=== PATIENT | male | born 1960 | race Caucasian/White ===

== ENCOUNTER 2025-02-06 08:39 | Outpatient (CLI) | payer MEDICARE, SELFPAY ==
--- NOTE | ~2025-02-06 | US_ITS ---
EXAMINATION: US renal BI, 02/06/2025 8:43 RN OPERATING ROOM HISTORY: stage 3b ckd Comparison: None Technique: Wright-scale and color Doppler images were obtained. Findings: KIDNEYS: The renal cortices are intact with no solid masses or calculi, no hydronephrosis. Right Kidney: Right kidney superior pole simple cyst 2 x 1.8 cm. Right kidney measures 11.8 x 4.8 x 5.8 cm. Left Kidney: Left kidney inferior pole simple cyst 2.6 x 2.3 cm. Left kidney 12.2 x 5 x 6.5 cm. Bladder: The bladder is unremarkable. . Impression: Bilateral simple appearing renal cysts Reviewed, dictated and finalized at location P. OPERATING ROOM Impression: Bilateral simple appearing renal cysts
== END 2025-02-06 08:40 | disposition home or self-care (01) ==
PROVIDERS: PCP Internal Medicine Nephrology; Visit Provider Internal Medicine Nephrology
DX: I12.9 Hypertensive chronic kidney disease with stage 1 through stage 4 chronic kidney disease, or unspecified chronic kidney disease (principal); N18.32 Chronic kidney disease, stage 3b; N28.1 Cyst of kidney, acquired
CPT/HCPCS: 76770